=== PATIENT | female | born 1965 | race Caucasian/White ===

== ENCOUNTER → 2021-05-07 10:33 | Outpatient (CLI) | payer SELFPAY ==
[2021-05-07 10:59] VITALS: BP 132/60; PULSE 85; RESP 18; TEMP 36.6; O2SAT 97
[2021-05-07 12:22] VITALS: BP 132/55; PULSE 86; RESP 18; TEMP 36.6; O2SAT 94
[2021-05-07] MEDS: 0.9% NaCl Peripheral Flush Adult/Peds IV (12:36)
[2021-05-07 13:30] VITALS: BP 151/67; PULSE 86; RESP 18; TEMP 36.5; O2SAT 98
[2021-05-07 14:10] VITALS: BP 135/64; PULSE 85; RESP 16; TEMP 36.5; O2SAT 98
== END ==
PROVIDERS: PCP Family Medicine; Referring Provider Internal Medicine Hematology & Oncology; Visit Provider Internal Medicine Hematology & Oncology
DX: D50.0 Iron deficiency anemia secondary to blood loss (chronic) (principal)
CPT/HCPCS: 36430; 86850; 86900; 86901; 86920; 86922; J7040; P9016; A4216